=== PATIENT | female | born 1990 | race Hispanic/Latino ===

== ENCOUNTER 2017-03-29 12:14 | Emergency (ER) | payer OTHER, SELFPAY ==
[2017-03-29 12:50] LABS: #Basophils 0.1 thou/uL (0.0-0.2); #Eosinphils 0.1 thou/uL (0.0-0.7); #Lymphocytes 2.7 thou/uL (1.20-3.40); #Monocytes 0.7 thou/uL (0.11-0.59); #Neutrophils 8.2 thou/uL (1.40-6.50); %Basophils 0.6 % (0.0-1.0); %Eosinophils 1.2 % (0.0-10.0); %Monocytes 5.6 % (0.0-10.0); Hematocrit 37.7 % (36.0-47.0); Mean Platelet Volume 5.6 fL (7.4-10.4); Red Blood Cell (RBC) Count 4.22 mill/uL (4.20-5.40); White Blood Cell (WBC) Count 11.8 thou/uL (4.8-10.8)
[2017-03-29 13:10] LABS: Anion Gap 10 mmol/L (10-20); BUN (Urea Nitrogen) 9 mg/dL (7.0-18.7); Bilirubin, Total 0.2 mg/dL (0.2-1.2); Calc. Creatinine Clearance 0 mL/min (70-130); Calcium 9.2 mg/dL (7.8-10.44); Carbon Dioxide 26 mmol/L (22-29); Chloride 105 mmol/L (98-107); Estimated GFR-MDRD Greater than 90; Protein, Total 6.6 g/dL (6.0-8.3)
[2017-03-29 13:11] LABS: ALT (SGPT) 14 U/L (8-55); AST (SGOT) 15 U/L (5-34); Alkaline Phosphatase 66 U/L (40-150); Globulin 3.1 g/dL (2.4-3.5)
[2017-03-29 13:13] LABS: Bilirubin Negative (Negative); Blood, Urine Negative (Negative); Glucose, Urine (Dipstick) Negative (Negative); Ketone, Urine Negative (Negative); Nitrite Negative (Negative); Protein, Urine (Dipstick) Negative (Neg-Trace); Urobilinogen 0.2 mg/dL (0.2-1.0)
== END 2017-03-29 16:25 | disposition left against medical advice (07) ==
LOC: ERS 12:14
DX: O99.89 Other specified diseases and conditions complicating pregnancy, childbirth and the puerperium (principal); R10.9 Unspecified abdominal pain; Z3A.21 21 weeks gestation of pregnancy
CPT/HCPCS: 36415; 80053; 81003; 84702; 84703; 85025; 99284

== ENCOUNTER 2017-09-14 12:22 | Day surgery (SDC) | payer OTHER, SELFPAY ==
[2017-09-14 12:58] VITALS: BP 119/62; TEMP 98.2; BMI 46.6
--- NOTE | 2017-09-14 13:39 | SS ---
DATE OF SERVICE: 09/14/2017 ATTENDING PHYSICIAN: Otf Keyes D.O. EVALUATING PHYSICIAN: Maninder Moran M.D. CHIEF COMPLAINT: Contractions. HISTORY OF PRESENT ILLNESS: Ms. Carreno is a 27-year-old G3, P2-0-0-2 with an estimated date of confinement of 10/27/2017, currently at almost 34 weeks who presents complaining of intermittent u terine contractions over the last 24 hours. She denies vaginal bleeding or ruptured membranes. Her care with Dr. Keyes has been reportedly uncomplicated. PAST OBSTETRICAL HISTORY: Includes two vaginal deliveries at term, both reportedly without complicat ions. PAST MEDICAL HISTORY: None. PAST SURGICAL HISTORY: None. CURRENT MEDICATIONS: vitamins. ALLERGIES: None. SOCIAL HISTORY: Denies tobacco, alcohol, or drug use. REVIEW OF SYSTEMS: She denies nausea, vomiting, fever, chills, vaginal bleeding or ruptured membrane s. PHYSICAL EXAMINATION: VITAL SIGNS: Stable. She is afebrile. ABDOMEN: Soft, nontender and gravid. PELVIC: Shows the cervix to be closed, long, midposition, slightly soft. heart tones are reas suring. No uterine contractions are seen. ASSESSMENT: 1. A 34-week intrauterine . 2. No evidence of labor. PLAN: Patient will be discharged to home at this time. She was given complete labor precaut ions and she was told to rest over the weekend and contact Dr. Keyes's office on Saturday. She voiced understanding of her discharge instructions and was sent home in good condition.
== END 2017-09-14 13:20 | disposition home or self-care (01) ==
LOC: L&D/OP 12:22
PROVIDERS: ATTEND Obstetrics & Gynecology
DX: O47.03 False labor before 37 completed weeks of gestation, third trimester (principal); Z3A.34 34 weeks gestation of pregnancy; Z79.899 Other long term (current) drug therapy
CPT/HCPCS: 99282

== ENCOUNTER 2017-10-05 22:09 | Day surgery (SDC) | payer OTHER ==
[2017-10-05 22:41] VITALS: BMI 47.2
[2017-10-05 22:52] VITALS: BP 137/83; TEMP 98.6
--- NOTE | 2017-10-06 00:44 | SS ---
DATE OF EVALUATION: 10/05/2017 ATTENDING PHYSICIAN: Otf Keyes DO EVALUATING PHYSICIAN: Maninder Moran MD CHIEF COMPLAINT: Contractions since earlier this evening. HISTORY OF PRESENT ILLNESS: Ms. Carreno is a 27-year-old -0-0-2 with an estimated date o f confinement of 10/27/2017 who presents complaining of uterine contractions since earlier this eveni ng. She denies vaginal bleeding or ruptured membranes. Her care has been with Dr. Keyes an d has been uncomplicated. She states that she was seen in the office this week and was 1-cm dilated. PAST OBSTETRICAL HISTORY: Include 2 vaginal deliveries at term, both without complications. PAST MEDICAL HISTORY: None. PAST SURGICAL HISTORY: None. CURRENT MEDICATIONS: vitamins. ALLERGIES: None. SOCIAL HISTORY: Denies tobacco, alcohol, or drug use. REVIEW OF SYSTEMS: Denies nausea, vomiting, fever, chills, vaginal bleeding, or leakage of fluid. PHYSICAL EXAMINATION: VITAL SIGNS: Stable. She is afebrile. ABDOMEN: Soft and nontender. It is gravid. The cervix is 1-cm dilated, 50% effaced with the vertex ballottable. heart tones are reassuring. Irregular uterine contractions, mostly with irritab ility are seen. The patient is reexamined after an hour and no cervical changes noted. ASSESSMENT AND PLAN: 1. A 37-week intrauterine . 2. No evidence of active labor. PLAN: At this time, the patient was given labor precautions. She was told to hydrate herself well a t home and to rest there and that once her contractions are stronger, to come back and be reevaluated . She voiced understanding of her discharge instructions and was sent home in good condition.
== END 2017-10-06 00:10 | disposition home or self-care (01) ==
LOC: L&D/OP 22:09
PROVIDERS: ATTEND Obstetrics & Gynecology
DX: O47.1 False labor at or after 37 completed weeks of gestation (principal); Z3A.37 37 weeks gestation of pregnancy; Z79.899 Other long term (current) drug therapy
CPT/HCPCS: 99283

== ENCOUNTER 2017-10-22 05:30 | Inpatient (IN) | payer OTHER, SELFPAY ==
[2017-10-22] MEDS ORDERED: Penicillin G Potassium 5 MILL.UNITS in Sodium Chloride 0.9% 100 ML IVPB SCH (08:42)
[2017-10-22] MEDS ORDERED: LR / Pitocin 40 units/1000 ml 1,000 ML IV PRN (08:42)
[2017-10-22] MEDS ORDERED: Ondansetron HCl/PF 4 MG/2 ML Vial IVP PRN ×3 (08:42→15:13)
[2017-10-22] MEDS ORDERED: Lidocaine 1% (PF) 30 ML VIAL SC PRN (08:42)
[2017-10-22] MEDS ORDERED: Promethazine HCl 25 MG/ML VIAL IM PRN ×3 (08:42→15:13)
[2017-10-22] MEDS ORDERED: Acetaminophen 500 MG TAB PO PRN (08:42)
[2017-10-22] MEDS ORDERED: Acetaminophen/Codeine 30-300mg Tablet PO PRN ×3 (08:42→15:13)
[2017-10-22] MEDS ORDERED: Ibuprofen 800 MG TAB PO PRN (08:42)
[2017-10-22] MEDS ORDERED: LR 500 ML/Oxytocin 10 units 500 ML IV SCH ×2 (08:42)
[2017-10-22 08:50] VITALS: BMI 50.1
[2017-10-22] MEDS: Lactated Ringer's 1,000 ML IV SCH ×2 (09:18→11:19)
[2017-10-22] MEDS ORDERED: Sodium Chloride 0.9% 100 ML ONE (09:25)
[2017-10-22 09:33] LABS: Hemoglobin 12.6 g/dL (12.0-16.0); Mean Corpuscular HGB CONC 33.5 g/dL (32.0-36.0); Mean Corpuscular Hemoglobin 27.7 pg (27.0-31.0); Mean Corpuscular Volume 82.8 fl (81.0-99.0); Mean Platelet Volume 6.6 fL (7.4-10.4); Platelet Count 252 thou/uL (130-400); RBC Distribution Width 13.8 % (11.5-14.5); Red Blood Cell (RBC) Count 4.55 mill/uL (4.20-5.40); White Blood Cell (WBC) Count 12.4 thou/uL (4.8-10.8)
--- NOTE | 2017-10-22 09:58 | PDOC.LDHP ---
Labor and Delivery H&P Chief complaint: scheduled induction HPI: Pt is a 27yo here for elective IOL @ 39+ weeks. Current gestational age (weeks): 39 Due date: 10/27/17 Dating criteria: first trimester ultrasound (11 week US redates) Grav: 3 Para: 2 OB History Details: x 2 largest 7#8oz Current complications: none Abnormal US findings: No Past Medical History: none Current medications: pre-ines vitamins Previous surgical history: none Allergies/Adverse Reactions: Allergies Allergy/AdvReac Type Severity Reaction Status Date / Time No Known Allergies Allergy Verified 10/22/17 08:44 Social history: none - Physical Exam Vital signs reviewed and normal: yes General: resting Lungs: nonlabored breathing Abdomen: gravid Extremeties: trace edema FHT: category 1 - Vaginal Exam cm dilated: 2 Effacement: 50% Station: -2 - OB Labs Blood type: O RH: positive Antibody Screen: negative HIV: negative RPR: negative HEPSAg: negative 1 hour GCT: positive 3 hour GTT: normal GBS: positive Urine drug screen: not done Rubella: immune - Assessment L&D Assessment: elective induction at term - Plan Plan: admit to L&D, labor augmentation if indicated, GBS antibiotic prophylaxis , informed consent obtained, anesthesia consult for pain management -: 27 yo @ 39+ weeks here for elective IOL. PCN for GBS, AROM w light mec on admit exam. Pitocon for IOL.
[2017-10-22 10:06] LABS: HBSAg Index 0.17 S/CO (0-0.99); Hep B Surf Ag Non-Reactive S/CO (NonReactive)
[2017-10-22] MEDS ORDERED: DISCONTINUE ALL PREVIOUS NARCOTICS FS SCH (10:30)
[2017-10-22] MEDS ORDERED: Bupivacaine 0.5% 20 ML, fentaNYL Citrate/PF 400 MCG in Sodium Chloride 0.9% 72 ML EPIDURAL SCH (10:30)
[2017-10-22] MEDS ORDERED: NS / Oxytocin 40 units/1000ml 1,000 ML IV PRN (11:49)
[2017-10-22] MEDS ORDERED: Penicillin G 2.5 MILL.units 2.5 MILL.UNITS in Premix Bag 1 BAG IVPB SCH (13:00)
[2017-10-22] MEDS ORDERED: Hydrocerin (Eucerin) Cream 120 gm Jar TOP PRN (14:02)
[2017-10-22] MEDS ORDERED: diphenhydrAMINE 50 MG/ML VIAL IVP PRN (14:02)
[2017-10-22] MEDS ORDERED: Acetaminophen 325 MG TAB PO PRN (14:02)
[2017-10-22] MEDS ORDERED: Naloxone HCl 0.4 mg/ml Vial IVP PRN ×2 (14:02)
[2017-10-22] MEDS ORDERED: Lactated Ringer's 500 ML IV PRN (14:02)
[2017-10-22] MEDS ORDERED: ePHEDrine/0.9% NaCl/PF SYRINGE 50 mg/10 ml SLOW IVP PRN (14:02)
[2017-10-22] MEDS ORDERED: Communication Order-Pharmacy FS SCH (14:15)
[2017-10-22] MEDS ORDERED: Fentanyl 4mcg/Marcaine 0.1% Cassette 100 ML EPIDURAL SCH (14:15)
--- NOTE | 2017-10-22 14:58 | PDOC.OPDEL ---
OB Operative/Delivery Note Delivery Dr/Surgeon: Wali Pre-Delivery Diagnosis: elective induction Procedure/Post Delivery Dx: spontaneous vaginal delivery Weeks gestation: 39 - Findings A Sex: female Weight: 8 lb 12 oz - 1 min: 8 - 5 min: 9 - Additional Findings/Plan Placenta delivered: spontaneous Repaired Obstetrical Laceration: 1st degree Estimated blood loss: 400ml Post delivery plan: routine recovery
[2017-10-22] MEDS ORDERED: Milk Of Magnesia 30 ML UDCUP PO PRN (15:13)
[2017-10-22] MEDS ORDERED: diphenhydrAMINE 25 MG CAP PO PRN (15:13)
[2017-10-22] MEDS ORDERED: NS / Oxytocin 40 units/1000ml 1,000 ML IV SCH (15:13)
[2017-10-22] MEDS ORDERED: Bisacodyl 10 MG SUPP PR PRN (15:13)
[2017-10-22] MEDS ORDERED: Benzocaine/Menthol 20-0.5% 60 ML CAN TOP PRN (15:13)
[2017-10-22] MEDS ORDERED: Preparation H Ointment 28 GM TUBE PR PRN (15:13)
[2017-10-22] MEDS ORDERED: Lanolin Ointment 7 GM TUBE TOP PRN (15:13)
[2017-10-22] MEDS ORDERED: Adacel (T-DAP) 0.5 ML VIAL IM ONE (15:30)
[2017-10-22] MEDS: Ferrous Sulfate 325 MG TAB PO SCH (18:20)
[2017-10-22] MEDS: Ibuprofen 800 MG TAB PO SCH (19:41)
[2017-10-22] MEDS: Docusate Calcium (SURFAK) 240 MG CAP PO SCH (19:41)
[2017-10-23] MEDS: Acetaminophen/Codeine 30-300mg Tablet PO PRN ×3 (00:23→16:25)
[2017-10-23] MEDS: Ibuprofen 800 MG TAB PO SCH ×2 (04:50→13:24)
[2017-10-23 06:04] LABS: Hemoglobin 12.2 g/dL (12.0-16.0); Mean Corpuscular HGB CONC 33.1 g/dL (32.0-36.0); Mean Corpuscular Hemoglobin 27.7 pg (27.0-31.0); Mean Corpuscular Volume 83.8 fl (81.0-99.0); Mean Platelet Volume 7.6 fL (7.4-10.4); Platelet Count 187 thou/uL (130-400); RBC Distribution Width 13.7 % (11.5-14.5); White Blood Cell (WBC) Count 15.2 thou/uL (4.8-10.8)
[2017-10-23] MEDS: Ferrous Sulfate 325 MG TAB PO SCH (07:54)
[2017-10-23] MEDS ORDERED: Prenatal Vitamin 1 TAB PO SCH (09:00)
--- NOTE | 2017-10-23 09:26 | PDOC.PP ---
Post Progress Note Post Day #: 1 Subjective: doing well, no concerns, normal lochia PO intake tolerated: yes Flatus: yes Ambulation: yes Vital Signs (12 hours) Temp Pulse Resp BP BP 10/23/17 08:04 97.6 F 94 20 123/70 10/23/17 04:50 97.9 F 77 18 131/72 10/23/17 00:15 98.3 F 77 20 122/67 Weight Weight 265 lb - Physical Examination General: NAD Respiratory: non-labored breathing Abdominal: no distention Fundus firm & at: below umb Extremities: negative homans (B) Skin: no rash Neurological: no gross focal deficits Psychiatric: A&Ox3, normal affect Result Diagrams: 10/23/17 05:26 Additional Labs: Post Labs Blood Type O POSITIVE 10/22/17 09:28 Hep Bs Antigen Non-Reactive S/CO (NonReactive) 10/22/17 09:28 (1) 39 weeks gestation of Code(s): Z3A.39 - 39 WEEKS GESTATION OF Status: Acute (2) Vaginal delivery Code(s): O80 - ENCOUNTER FOR FULL-TERM UNCOMPLICATED DELIVERY Status: Acute - Assessment/Plan PPD#1 doing well, poss DC this PM vs tomorrow.
[2017-10-23] MEDS: Docusate Calcium (SURFAK) 240 MG CAP PO SCH (09:37)
[2017-10-23 12:12] VITALS: BP 141/87; TEMP 99
== END 2017-10-23 16:50 | disposition home or self-care (01) | DRG 775 ==
LOC: L&D 08:16 → 3SW 17:09
PROVIDERS: ADMIT Obstetrics & Gynecology; ATTEND Obstetrics & Gynecology
PROC: 10E0XZZ Delivery of Products of Conception, External Approach (ICD-10-PCS; principal; 2017-10-22)
PROC: 0HQ9XZZ Repair Perineum Skin, External Approach (ICD-10-PCS; 2017-10-22)
PROC: 3E033VJ Introduction of Other Hormone into Peripheral Vein, Percutaneous Approach (ICD-10-PCS; 2017-10-22)
PROC: 10907ZC Drainage of Amniotic Fluid, Therapeutic from Products of Conception, Via Natural or Artificial Opening (ICD-10-PCS; 2017-10-22)
DX: O70.0 First degree perineal laceration during delivery (principal); O99.824 Streptococcus B carrier state complicating childbirth; Z3A.39 39 weeks gestation of pregnancy; O77.0 Labor and delivery complicated by meconium in amniotic fluid; Z37.0 Single live birth
CPT/HCPCS: 36415; 51702; 85027; 86850; 86900; 86901; 87340; J2001; J2540; J3010; J3490; J7050; J7120

== ENCOUNTER 2020-11-30 12:42 | Inpatient (IN) | payer MEDICAID, SELFPAY ==
[2020-11-30] MEDS ORDERED: Ketorolac Tromethamine 30 MG/ML VIAL ONE (13:25)
[2020-11-30 13:34] LABS: #Monocytes 0.3 thou/uL (0.11-0.59); #Neutrophils 10.1 thou/uL (1.40-6.50); %Basophils 0.2 % (0.0-1.0); %Eosinophils 0.2 % (0.0-10.0); %Lymphocytes 8.4 % (21.0-51.0); %Monocytes 2.3 % (0.0-10.0); Hemoglobin 13.5 g/dL (12.0-16.0); Mean Corpuscular HGB CONC 33.7 g/dL (32.0-36.0); Mean Corpuscular Hemoglobin 28.4 pg (27.0-31.0); Mean Corpuscular Volume 84.1 fL (78.0-98.0); Mean Platelet Volume 6.3 fL (7.4-10.4); Platelet Count 356 thou/uL (130-400); RBC Distribution Width 12.6 % (11.5-14.5); Red Blood Cell (RBC) Count 4.74 mill/uL (4.20-5.40); White Blood Cell (WBC) Count 11.3 thou/uL (4.8-10.8)
[2020-11-30 13:41] LABS: ALT (SGPT) 70 U/L (8-55); AST (SGOT) 89 U/L (5-34); Albumin 3.8 g/dL (3.5-5.0); Alkaline Phosphatase 65 U/L (40-110); Anion Gap 17 mmol/L (10-20); BUN (Urea Nitrogen) 8 mg/dL (7.0-18.7); Bilirubin, Total 0.5 mg/dL (0.2-1.2); Calc. Creatinine Clearance 0 mL/min (70-130); Calcium 8.6 mg/dL (7.8-10.44); Carbon Dioxide 22 mmol/L (22-29); Chloride 98 mmol/L (98-107); Globulin 3.3 g/dL (2.4-3.5); Glucose 111 mg/dL (70-105); Potassium 4.7 mmol/L (3.5-5.1); Protein, Total 7.1 g/dL (6.0-8.3); Sodium 132 mmol/L (136-145)
[2020-11-30 13:45] LABS: Troponin I Less than 0.010 ng/mL (< 0.028)
[2020-11-30] MEDS ORDERED: Iopamidol-370 76% 500 ML 1 ML ONE (14:00)
[2020-11-30 14:27] LABS: BHCG - Serum Negative (NEGATIVE); Pregs Control Background? CLEAR/WHITE (CLR/WHITE); Pregs Control Bar Appear? YES (CONTROL BAR)
[2020-11-30] MEDS ORDERED: Azithromycin 500 MG VIAL ONE (16:07)
[2020-11-30] MEDS ORDERED: Dexamethasone 4 mg/ml Vial ONE (16:07)
[2020-11-30] MEDS ORDERED: cefTRIAXone\\ROCEPHIN 1 GM VIAL ONE (16:07)
[2020-11-30] MEDS ORDERED: Morphine 2 MG/ML VIAL SLOW IVP PRN (21:49)
[2020-11-30] MEDS ORDERED: hydrALAZINE 20 MG/ML VIAL SLOW IVP PRN (21:49)
[2020-11-30] MEDS ORDERED: cloNIDine 0.1 MG TAB PO PRN (21:49)
[2020-11-30] MEDS ORDERED: Labetalol HCl 100 MG/20 ML VIAL SLOW IVP PRN (21:49)
[2020-11-30] MEDS ORDERED: Promethazine HCl 12.5 MG in Sodium Chloride 0.9% 50 ML IVPB PRN (21:49)
[2020-11-30] MEDS ORDERED: Ondansetron PF 4 MG/2 ML Vial IVP PRN (21:49)
[2020-11-30] MEDS ORDERED: Electrolyte Replacement Protocol 1 EACH FS SCH (22:00)
[2020-11-30] MEDS ORDERED: Albuterol 200 PUFF (6.7GM INHALER) INH PRN (22:56)
[2020-11-30] MEDS ORDERED: Electrolyte Replacement Protocol FS PRN (23:15)
[2020-11-30] MEDS: Sodium Chloride 0.9% 1,000 ML IV SCH (23:47)
[2020-12-01 00:17] VITALS: BMI 39.9
[2020-12-01] MEDS: Guaifenesin DM 100-10/5 ML UDCUP PO PRN ×2 (02:05→21:11)
[2020-12-01 05:10] LABS: #Monocytes 0.3 thou/uL (0.11-0.59); #Neutrophils 5.1 thou/uL (1.40-6.50); %Eosinophils 0.5 % (0.0-10.0); %Monocytes 4.9 % (0.0-10.0); %Neutrophils 79.6 % (42.0-75.0); Mean Corpuscular HGB CONC 31.9 g/dL (32.0-36.0); Mean Corpuscular Hemoglobin 27.2 pg (27.0-31.0); Mean Corpuscular Volume 85.3 fL (78.0-98.0); Platelet Count 382 thou/uL (130-400); RBC Distribution Width 12.7 % (11.5-14.5); Red Blood Cell (RBC) Count 4.79 mill/uL (4.20-5.40); White Blood Cell (WBC) Count 6.4 thou/uL (4.8-10.8)
[2020-12-01 05:29] LABS: Anion Gap 14 mmol/L (10-20); BUN (Urea Nitrogen) 9 mg/dL (7.0-18.7); Calc. Creatinine Clearance 212 mL/min (70-130); Calcium 8.9 mg/dL (7.8-10.44); Carbon Dioxide 22 mmol/L (22-29); Chloride 104 mmol/L (98-107); Glucose 148 mg/dL (70-105); Magnesium 2.4 mg/dL (1.6-2.6); Potassium 4.4 mmol/L (3.5-5.1); Sodium 136 mmol/L (136-145)
[2020-12-01] MEDS ORDERED: Polyethylene Glycol 3350 17 GM Packet PO SCH (09:00)
[2020-12-01] MEDS ORDERED: Famotidine 20 MG TAB PO SCH (09:00)
[2020-12-01] MEDS ORDERED: HYDROcodone/Acetaminophen 5/325 mg Tablet ONE (09:30)
[2020-12-01] MEDS: Cholecalciferol 1,000 UNITS (25 MCG) TAB PO SCH (09:36)
[2020-12-01] MEDS: Zinc Sulfate 220 MG CAP PO SCH (09:36)
[2020-12-01] MEDS: Ascorbic Acid 500 mg Chewable Tablet PO SCH (09:36)
[2020-12-01] MEDS: HYDROcodone/Acetaminophen 5/325 mg Tablet PO PRN ×2 (09:37→21:10)
[2020-12-01] MEDS: Sodium Chloride 0.9% 1,000 ML IV SCH (09:43)
[2020-12-01] MEDS: Acetaminophen 325 MG TAB PO PRN ×2 (14:06→23:20)
[2020-12-01] MEDS ORDERED: REMDESIVIR 200 MG in Sodium Chloride 0.9% 250 ML 210 ML IV SCH (15:45)
[2020-12-01] MEDS ORDERED: Azithromycin 500 MG in Sodium Chloride 0.9% 250 ML 250 ML IVPB SCH (16:00)
[2020-12-01] MEDS ORDERED: cefTRIAXone\\ROCEPHIN 1 GM in Sodium Chloride 0.9% 100 ML IVPB SCH (17:00)
[2020-12-01] MEDS ORDERED: Dexamethasone 4 mg/ml Vial SLOW IVP SCH (17:00)
[2020-12-01] MEDS ORDERED: Enoxaparin Sodium 40 MG/0.4 ML SYRINGE SC SCH (21:00)
[2020-12-01] MEDS: Colchicine 0.6 MG TAB PO SCH (21:11)
[2020-12-01] MEDS: methylPREDNISolone Sod Succ 40 MG VIAL IVP SCH (21:11)
[2020-12-01] MEDS ORDERED: Azithromycin 500 MG in Syringe 0 ML IVPB SCH (22:00)
[2020-12-02] MEDS: methylPREDNISolone Sod Succ 40 MG VIAL IVP SCH ×3 (06:06→20:40)
[2020-12-02] MEDS: Guaifenesin DM 100-10/5 ML UDCUP PO PRN ×3 (06:28→20:39)
[2020-12-02] MEDS: Ascorbic Acid 500 mg Chewable Tablet PO SCH (08:51)
[2020-12-02] MEDS: Zinc Sulfate 220 MG CAP PO SCH (08:51)
[2020-12-02] MEDS: Enoxaparin Sodium 40 MG/0.4 ML SYRINGE SC SCH ×2 (08:51→20:39)
[2020-12-02] MEDS: Cholecalciferol 1,000 UNITS (25 MCG) TAB PO SCH (08:51)
[2020-12-02] MEDS: Colchicine 0.6 MG TAB PO SCH ×2 (08:51→20:40)
[2020-12-02] MEDS: Benzonatate 100 MG CAP PO SCH ×2 (15:32→20:40)
[2020-12-02] MEDS: REMDESIVIR 100 MG in Sodium Chloride 0.9% 250 ML 230 ML IV SCH (16:10)
[2020-12-02] MEDS: Albuterol 200 PUFF (6.7GM INHALER) INH SCH (18:35)
[2020-12-02] MEDS: HYDROcodone/Acetaminophen 5/325 mg Tablet PO PRN (20:39)
[2020-12-02] MEDS: guaiFENesin ER 600 MG TAB PO SCH (20:40)
[2020-12-03] MEDS: Albuterol 200 PUFF (6.7GM INHALER) INH SCH ×4 (02:56→20:18)
[2020-12-03] MEDS: Guaifenesin DM 100-10/5 ML UDCUP PO PRN (04:52)
[2020-12-03] MEDS: methylPREDNISolone Sod Succ 40 MG VIAL IVP SCH ×3 (04:52→20:18)
[2020-12-03] MEDS: Aspirin 81 mg Enteric Coated Tablet PO SCH (10:12)
[2020-12-03] MEDS: guaiFENesin ER 600 MG TAB PO SCH ×2 (10:12→20:19)
[2020-12-03] MEDS: Zinc Sulfate 220 MG CAP PO SCH (10:13)
[2020-12-03] MEDS: Cholecalciferol 1,000 UNITS (25 MCG) TAB PO SCH (10:13)
[2020-12-03] MEDS: Enoxaparin Sodium 40 MG/0.4 ML SYRINGE SC SCH ×2 (10:13→20:18)
[2020-12-03] MEDS: Benzonatate 100 MG CAP PO SCH ×3 (10:13→20:19)
[2020-12-03] MEDS: Ascorbic Acid 500 mg Chewable Tablet PO SCH (10:13)
[2020-12-03] MEDS: Colchicine 0.6 MG TAB PO SCH ×2 (10:20→20:19)
[2020-12-03] MEDS: REMDESIVIR 100 MG in Sodium Chloride 0.9% 250 ML 230 ML IV SCH (16:48)
[2020-12-03] MEDS: guaiFENesin/Codeine 200 mg/20 mg 10 ml Cup PO PRN (20:18)
[2020-12-04] MEDS: Albuterol 200 PUFF (6.7GM INHALER) INH SCH ×4 (01:14→18:30)
[2020-12-04] MEDS: methylPREDNISolone Sod Succ 40 MG VIAL IVP SCH ×3 (05:13→20:26)
[2020-12-04] MEDS: guaiFENesin/Codeine 200 mg/20 mg 10 ml Cup PO PRN ×2 (05:13→11:05)
[2020-12-04] MEDS: Enoxaparin Sodium 40 MG/0.4 ML SYRINGE SC SCH ×2 (08:24→20:28)
[2020-12-04] MEDS: Ascorbic Acid 500 mg Chewable Tablet PO SCH (08:24)
[2020-12-04] MEDS: guaiFENesin ER 600 MG TAB PO SCH ×2 (08:25→20:28)
[2020-12-04] MEDS: Cholecalciferol 1,000 UNITS (25 MCG) TAB PO SCH (08:25)
[2020-12-04] MEDS: Aspirin 81 mg Enteric Coated Tablet PO SCH (08:25)
[2020-12-04] MEDS: Zinc Sulfate 220 MG CAP PO SCH (08:25)
[2020-12-04] MEDS: Colchicine 0.6 MG TAB PO SCH ×2 (08:25→20:25)
[2020-12-04] MEDS: Benzonatate 100 MG CAP PO SCH ×3 (08:26→20:28)
[2020-12-04 10:37] LABS: ALT (SGPT) 109 U/L (8-55); AST (SGOT) 74 U/L (5-34); Albumin 3.7 g/dL (3.5-5.0); Alkaline Phosphatase 71 U/L (40-110); Bilirubin, Direct 0.3 mg/dL (0.1-0.3); Bilirubin, Total 0.6 mg/dL (0.2-1.2); Protein, Total 7.1 g/dL (6.0-8.3)
[2020-12-04 10:39] LABS: ALT (SGPT) 109 U/L (8-55); AST (SGOT) 75 U/L (5-34); Albumin 3.7 g/dL (3.5-5.0); Alkaline Phosphatase 70 U/L (40-110); Anion Gap 15 mmol/L (10-20); BUN (Urea Nitrogen) 15 mg/dL (7.0-18.7); Bilirubin, Total 0.6 mg/dL (0.2-1.2); CRP (Inflammatory) Less than 0.50 mg/dL (= or < 0.5); Calc. Creatinine Clearance 216 mL/min (70-130); Calcium 9.2 mg/dL (7.8-10.44); Carbon Dioxide 21 mmol/L (22-29); Chloride 102 mmol/L (98-107); Globulin 3.5 g/dL (2.4-3.5); Glucose 129 mg/dL (70-105); Potassium 4.3 mmol/L (3.5-5.1); Protein, Total 7.2 g/dL (6.0-8.3); Sodium 134 mmol/L (136-145)
[2020-12-04] MEDS: REMDESIVIR 100 MG in Sodium Chloride 0.9% 250 ML 230 ML IV SCH (15:04)
[2020-12-05] MEDS: Albuterol 200 PUFF (6.7GM INHALER) INH SCH ×3 (02:24→13:54)
[2020-12-05 05:48] LABS: ALT (SGPT) 125 U/L (8-55); AST (SGOT) 66 U/L (5-34); Albumin 3.5 g/dL (3.5-5.0); Alkaline Phosphatase 84 U/L (40-110); Bilirubin, Direct 0.2 mg/dL (0.1-0.3); Bilirubin, Total 0.5 mg/dL (0.2-1.2); Calc. Creatinine Clearance 222 mL/min (70-130); Protein, Total 6.6 g/dL (6.0-8.3)
[2020-12-05] MEDS: methylPREDNISolone Sod Succ 40 MG VIAL IVP SCH ×2 (06:20→15:54)
[2020-12-05] MEDS: Colchicine 0.6 MG TAB PO SCH (09:13)
[2020-12-05] MEDS: Zinc Sulfate 220 MG CAP PO SCH (09:14)
[2020-12-05] MEDS: Ascorbic Acid 500 mg Chewable Tablet PO SCH (09:14)
[2020-12-05] MEDS: guaiFENesin ER 600 MG TAB PO SCH (09:14)
[2020-12-05] MEDS: Benzonatate 100 MG CAP PO SCH ×2 (09:14→15:54)
[2020-12-05] MEDS: Cholecalciferol 1,000 UNITS (25 MCG) TAB PO SCH (09:14)
[2020-12-05] MEDS: Enoxaparin Sodium 40 MG/0.4 ML SYRINGE SC SCH (09:14)
[2020-12-05] MEDS: Aspirin 81 mg Enteric Coated Tablet PO SCH (09:14)
[2020-12-05 12:01] VITALS: BP 121/75; TEMP 98.3
[2020-12-05] MEDS: REMDESIVIR 100 MG in Sodium Chloride 0.9% 250 ML 230 ML IV SCH (15:54)
== END 2020-12-05 18:30 | disposition home or self-care (01) | DRG 871 ==
LOC: ERS 12:42 → ERHOLD 16:56 → 2SW 12-01 12:09
PROVIDERS: ADMIT Internal Medicine; ATTEND Student in an Organized Health Care Education/Training Program
PROC: 8E0ZXY6 Isolation (ICD-10-PCS; 2020-11-30)
PROC: XW033E5 Introduction of Remdesivir Anti-infective into Peripheral Vein, Percutaneous Approach, New Technology Group 5 (ICD-10-PCS; principal; 2020-12-02)
DX: A41.89 Other specified sepsis (principal); U07.1 COVID-19; J12.82 Pneumonia due to coronavirus disease 2019; J96.01 Acute respiratory failure with hypoxia; E87.1 Hypo-osmolality and hyponatremia; R94.5 Abnormal results of liver function studies; R65.20 Severe sepsis without septic shock; E66.01 Morbid (severe) obesity due to excess calories; Z79.82 Long term (current) use of aspirin; Z79.899 Other long term (current) drug therapy; Z68.39 Body mass index [BMI] 39.0-39.9, adult
CPT/HCPCS: 36415; 71045; 71275; 80048; 80053; 80076; 82565; 83605; 83735; 84484; 84703; 85025; 85379; 86140; 87040; 93005; 96365; 96367; 96374; 96375; J0456; J0696; J1100; J1650; J1885; J2920; J7050; Q9967

== ENCOUNTER 2022-05-15 08:38 | Emergency (ER) | payer SELFPAY, OTHER | END 2022-05-15 09:30 | disposition left against medical advice (07) | LOC: ERS 08:38 | DX: Z53.21 Procedure and treatment not carried out due to patient leaving prior to being seen by health care provider (principal) ==